=== PATIENT | male | born 1970 | race Hispanic/Latino ===

== ENCOUNTER 2018-10-20 10:54 | Inpatient (IN) | payer BC, OTHER ==
[2018-10-20 10:58] VITALS: BMI 24.5
--- NOTE | 2018-10-20 11:28 | ED PDOC ---
HPI: Back Time Seen by Provider: 10/20/18 11:03 Chief Complaint (Nursing): Back Pain History Per: Patient Onset/Duration Of Symptoms: Persistent Current Symptoms Are (Timing): Still Present Quality Of Discomfort: Aching Severity: Moderate Previous Symptoms: Back Pain Associated Symptoms: None Additional Complaint(s): Low back pain worse over past few days. H/o lumbar disk herniation. no weakness. No urinary sxs. Past Medical History Vital Signs: Last Vital Signs Temp 98.4 F 10/20/18 10:57 Pulse 81 10/20/18 10:57 Resp 17 10/20/18 10:57 BP 133/79 10/20/18 10:57 Pulse Ox 97 10/20/18 10:57 Primary Care Provider: Shai Villalobos - Medical History PMH: No Chronic Diseases - Family History Family History: States: Unknown Family Hx - Allergies Allergies/Adverse Reactions: Allergies Allergy/AdvReac Type Severity Reaction Status Date / Time No Known Allergies Allergy Verified 10/20/18 11:06 Review of Systems ROS Statement: Except As Marked, All Systems Reviewed And Found Negative Musculoskeletal: Positive for: Back Pain Physical Exam - Reviewed Nursing Documentation Reviewed: Yes Vital Signs Reviewed: Yes - Physical Exam Appears: Positive for: Non-toxic, No Acute Distress Head Exam: Positive for: ATRAUMATIC, NORMAL INSPECTION, NORMOCEPHALIC Skin: Positive for: Normal Color, Warm, DRY Eye Exam: Positive for: EOMI, Normal appearance, PERRL Cardiovascular/Chest: Positive for: Regular Rate, Rhythm Respiratory: Positive for: CNT, Normal Breath Sounds Gastrointestinal/Abdominal: Positive for: Normal Exam, Soft Extremity: Positive for: Normal ROM Neurological/Psych: Positive for: Awake, Alert, Normal Tone - ECG O2 Sat by Pulse Oximetry: 97 Disposition - Clinical Impression Clinical Impression: Back pain - Disposition Referrals: Shai Villalobos MD [Primary Care Provider] - Disposition Time: 11:28 Condition: FAIR - Pt Status Changed To: Hospital Disposition Of: Inpatient - Admit Certification Admit to Inpatient:: After my assessment, the patient will require hospitalization for at least two midnights. This is because of the severity of symptoms shown, intensity of services needed, and/or the medical risk in this patient being treated as an outpatient. - POA Present On Arrival: None
[2018-10-20 11:49] LABS: BASO # 0.1 K/uL (0.0-0.2); BASO % 0.9 % (0.0-2.0); EOS # 0.4 K/uL (0.0-0.7); EOS % 6.9 % (0.0-4.0); LYMPH # 2.2 K/uL (1.0-4.3); LYMPH % 35.2 % (20.0-40.0); MEAN CELL VOLUME 97.1 fl (80.0-94.0); MEAN CORPUSCULAR HEMOGLOBIN 32.6 pg (27.0-31.0); MEAN CORPUSCULAR HGB CONC 33.6 g/dL (33.0-37.0); MEAN PLATELET VOLUME 8.5 fl (7.2-11.7); MONO # 0.5 K/uL (0.0-0.8); MONO % 7.8 % (0.0-10.0); NEUT % 49.2 % (50.0-75.0); NRBC % 0.1 % (0.0-0.0); RBC 4.91 Mil/uL (4.40-5.90); RED CELL DISTRIBUTION WIDTH 14.3 % (11.5-14.5); WHITE BLOOD COUNT 6.2 K/uL (4.8-10.8)
[2018-10-20 11:53] LABS: PROTHROMBIN TIME 11.3 Seconds (9.8-13.1)
[2018-10-20 11:58] LABS: ALB/GLOB RATIO 1.4 (1.0-2.1); ALBUMIN 4.1 g/dL (3.5-5.0); ALT/SGPT 54 U/L (21-72); AST/SGOT 26 U/L (17-59); BLOOD UREA NITROGEN 16 mg/dl (9-20); CALCIUM 9.3 mg/dL (8.4-10.2); GFR NON-AFRICAN AMERICAN > 60
--- NOTE | 2018-10-20 14:03 | CT ---
Date of service: 10/20/2018 PROCEDURE: CT Lumbar Spine without contrast HISTORY: lumbar disc herniation COMPARISON: None available. TECHNIQUE: Axial computed tomography images were obtained of the lumbar spine without the use of intravenous contrast. Coronal and sagittal reformatted images were created and reviewed. Radiation dose: Total exam DLP = 321.68 mGy-cm. This CT exam was performed using one or more of the following dose reduction techniques: Automated exposure control, adjustment of the mA and/or kV according to patient size, and/or use of iterative reconstruction technique. FINDINGS: VERTEBRAE: There is grade 1 8 millimeter anterior spondylolisthesis of L5 relative to S1 associated with bilateral L5 spondylolysis and defect in the bilateral pars interarticularis. No evidence of destructive bony lesion or acute fracture otherwise in the lumbar spine. DISCS/SPINAL CANAL/NEURAL FORAMINA: L1-2: Unremarkable. L2-3: Unremarkable. L3-4: Unremarkable. L4-5: Unremarkable. L5-S1: There is broad-based disc protrusion associated with mild facet joint and posterior ligament hypertrophy which resulting in mild spinal and neural foraminal narrowing. PARASPINAL SOFT TISSUES: There is 2 millimeter nonobstructing calculus at the midpole of the left kidney. OTHER FINDINGS: None. IMPRESSION: Grade 1 anterior spondylolisthesis of L5 relative to S1 associated with bilateral L5 spondylolysis. Small to moderate size disc protrusion at L5-S1 associated with posterior ligament and facet joint hypertrophy which resulting in mild spinal and neural foraminal narrowing.
--- NOTE | 2018-10-20 14:15 | RAD ---
Date of service: 10/20/2018 HISTORY: Lumbar disc herniation COMPARISON: No prior. TECHNIQUE: Chest PA and lateral views FINDINGS: LUNGS: No active pulmonary disease. PLEURA: No significant pleural effusion identified. No pneumothorax apparent. CARDIOVASCULAR: No aortic atherosclerotic calcification present. Normal cardiac size. No pulmonary vascular congestion. OSSEOUS STRUCTURES: No significant abnormalities. VISUALIZED UPPER ABDOMEN: Normal. OTHER FINDINGS: None. IMPRESSION: No active disease.
--- NOTE | 2018-10-20 20:38 | CP.PCM.HP ---
History of Present Illness - History of Present Illness History of Present Illness: HPI: 48 y/o male with a PMH of lumbar disc herniation presented to the ED with acute on chronic back pain. As per the pt, he works in construction and has been experiencing worsening back pain over the past 12 months, with associated neuropathy/sciatic pain to the lower extremities. He has tried physical therapy, yoga, and trigger point injections, with no relief. Case discussed with Dr. Villalobos, pt for surgery tomorrow. PMH: Lumbar disc herniation. PSH: Cervical spine surgery. Allergies: NKDA. Review of Systems: Reviewed and no additional remarkable complaints except lower back pain and neuropathy. Objective Appears: Calm, Non-toxic, No Acute Distress. Head Exam: NORMAL INSPECTION, normocephalic. Eye Exam: Normal eye inspection, EOMI, PERRLA. Respiratory Exam: NORMAL BREATHING PATTERN, breath sounds clear to auscultation. Cardiovascular Exam: +S1, +S2. RRR. GI & Abdominal Exam: Soft, non-tender, non-distended. Musculoskeletal Exam: Painful ROM to the lower back, as well as vertebral tenderness on palpation. Neurological Exam: Alert, Awake, Oriented x3. Psychiatric exam: Normal mood. Calm and cooperative. Skin exam: Normal color, warm and dry. Assessment/Impression/Plan: 1.) Back pain/Lumbar disc herniation -Pt for lumbar disc surgery with Dr. Villalobos tomorrow, 10/21/18. -CT lumbar spine revealed "Grade 1 anterior spondylolisthesis of L5 relative to S1, as well as small to moderate size disc protrusion at L5-S1". -CXR, labs, and EKG reviewed- unremarkable, no acute findings. Medically cleared for surgery at this time. -NPO past midnight; will start Lactated Ringers. -Morphine and Dilaudid for pain. -SCDs for VTE. Present on Admission - Present on Admission Any Indicators Present on Admission: No Past Patient History - Past Medical History & Family History Past Medical History?: No - Past Social History Smoking Status: Heavy Smoker > 10 Cigarettes Daily - HEMATOLOGICAL/ONCOLOGICAL Hx AIDS: No Hx Human Immunodeficiency Virus (HIV): No - MUSCULOSKELETAL/RHEUMATOLOGICAL Hx Musculoskeletal Disorders: Yes Hx Falls: No - PSYCHIATRIC Hx Substance Use: No - SURGICAL HISTORY Hx Orthopedic Surgery: Yes Other/Comment: neck/ spinal fusion - ANESTHESIA Hx Anesthesia: Yes Hx Anesthesia Reactions: No Hx Malignant Hyperthermia: No Has any member of the family had a problem w/ anesthesia?: No Meds Allergies/Adverse Reactions: Allergies Allergy/AdvReac Type Severity Reaction Status Date / Time No Known Allergies Allergy Verified 10/20/18 11:06 Results - Vital Signs Recent Vital Signs: Last Vital Signs Temp 97.7 F 10/20/18 16:03 Pulse 66 10/20/18 16:03 Resp 20 10/20/18 16:03 BP 127/78 10/20/18 16:03 Pulse Ox 96 10/20/18 16:03 - Labs Result Diagrams: 10/20/18 11:45 10/20/18 11:45 Labs: Laboratory Results - last 24 hr 10/20/18 10/20/18 10/20/18 11:45 11:45 11:45 WBC 6.2 RBC 4.91 Hgb 16.0 Hct 47.7 MCV 97.1 H MCH 32.6 H MCHC 33.6 RDW 14.3 Plt Count 281 MPV 8.5 Neut % (Auto) 49.2 L Lymph % (Auto) 35.2 [place] % (Auto) 7.8 Eos % (Auto) 6.9 H Baso % (Auto) 0.9 Neut # (Auto) 3.0 Lymph # (Auto) 2.2 [place] # (Auto) 0.5 Eos # (Auto) 0.4 Baso # (Auto) 0.1 PT 11.3 INR 1.0 Sodium 140 Potassium 4.6 Chloride 103 Carbon Dioxide 27 Anion Gap 15 BUN 16 Creatinine 0.9 Est GFR ( Amer) > 60 Est GFR (Non-Af Amer) > 60 Random Glucose 100 Calcium 9.3 Total Bilirubin 0.5 AST 26 ALT 54 Alkaline Phosphatase 51 Total Protein 7.0 Albumin 4.1 Globulin 2.9 Albumin/Globulin Ratio 1.4 Assessment & Plan (1) Lumbar disc herniation Status: Acute (2) Back pain Status: Acute
--- NOTE | 2018-10-20 21:55 | CARD ---
APPROVED REPORT Date of service: 10/20/2018 EKG Measurement Heart [id number] <Conclusion> Normal sinus rhythm Possible Left atrial enlargement Borderline ECG
[2018-10-21] MEDS: Lactated Ringer's 1,000 ML IV SCH ×2 (00:04→20:17)
[2018-10-21] MEDS: HYDROmorphone 0.5 mg/0.5 ml ISec IVP PRN ×3 (00:11→14:05)
--- NOTE | 2018-10-21 07:29 | CP.PCM.CON ---
History of Present Illness - History of Present Illness History of Present Illness: Neurosurgical consult: Dr. Villalobos Patient is a 48 y/o male c/o severe lower back pain. The patient has had chronic lower back pain for many years which had progressively worsened over the past few weeks. The pain is daily and has hindered his usual activities such as walking, sitting and climbing. He has tried and failed conservative means with PT and oral medications. The pain is dull, intermittent and radiates to the LLE. He denies any numbness/tingling to LE, as well as bowel/bladder dysfunction or saddle paresthesias. He also denies CP/SOB/N/V/D/fever/dysuria/melena. PMH: denies PSH: cervical fusion, R femur ORIF, R femur removal of hardware meds: none allergy: NKDA SH: tobacco 2 ppd >40 years, former ETOH abuser, denies drug use Review of Systems - Review of Systems All systems: reviewed and no additional remarkable complaints except Review of Systems: as per HPI Past Patient History - Past Medical History & Family History Past Medical History?: No Past Family History: Reviewed and not pertinent - Past Social History Smoking Status: Heavy Smoker > 10 Cigarettes Daily - HEMATOLOGICAL/ONCOLOGICAL Hx AIDS: No Hx Human Immunodeficiency Virus (HIV): No - MUSCULOSKELETAL/RHEUMATOLOGICAL Hx Musculoskeletal Disorders: Yes Hx Falls: No - PSYCHIATRIC Hx Substance Use: No - SURGICAL HISTORY Hx Orthopedic Surgery: Yes Other/Comment: neck/ spinal fusion - ANESTHESIA Hx Anesthesia: Yes Hx Anesthesia Reactions: No Hx Malignant Hyperthermia: No Has any member of the family had a problem w/ anesthesia?: No Meds Allergies/Adverse Reactions: Allergies Allergy/AdvReac Type Severity Reaction Status Date / Time No Known Allergies Allergy Verified 10/20/18 11:06 - Medications Medications: Current Medications Hydromorphone HCl (Dilaudid) 0.5 mg IVP Q4H PRN PRN Reason: Pain, severe (8-10) Stop: 10/22/18 13:19 Last Admin: 10/21/18 00:11 Dose: 0.5 mg Lactated Ringer's (Lactated Ringer's) 1,000 mls @ 100 mls/hr IV .Q10H [facility] Last Admin: 10/21/18 00:04 Dose: 100 mls/hr Morphine Sulfate (Morphine) 2 mg IVP Q4 PRN PRN Reason: Pain, moderate (4-7) Last Admin: 10/21/18 05:39 Dose: 2 mg Physical Exam - Constitutional Appears: Well, No Acute Distress - Head Exam Head Exam: ATRAUMATIC, NORMOCEPHALIC - Eye Exam Eye Exam: EOMI, Normal appearance - ENT Exam ENT Exam: Mucous Membranes Moist - Respiratory Exam Respiratory Exam: NORMAL BREATHING PATTERN - Back Exam Additional comments: no lesions/masses/erythema diffuse lumbar midline and paraspinal tenderness sensation intact SP/DP/TN motor intact EHL/FHL/TA/G neg clonus - SLR b/l - Neurological Exam Neurological exam: Alert, CN II-XII Intact, Oriented x3 Results - Vital Signs Recent Vital Signs: Last Vital Signs Temp 98.4 F 10/20/18 23:38 Pulse 66 10/20/18 23:38 Resp 20 10/20/18 23:38 BP 108/71 10/20/18 23:38 Pulse Ox 96 10/20/18 23:38 - Labs Result Diagrams: 10/20/18 11:45 10/20/18 11:45 Labs: Laboratory Results - last 24 hr 10/20/18 10/20/18 10/20/18 11:45 11:45 11:45 WBC 6.2 RBC 4.91 Hgb 16.0 Hct 47.7 MCV 97.1 H MCH 32.6 H MCHC 33.6 RDW 14.3 Plt Count 281 MPV 8.5 Neut % (Auto) 49.2 L Lymph % (Auto) 35.2 [place] % (Auto) 7.8 Eos % (Auto) 6.9 H Baso % (Auto) 0.9 Neut # (Auto) 3.0 Lymph # (Auto) 2.2 [place] # (Auto) 0.5 Eos # (Auto) 0.4 Baso # (Auto) 0.1 PT 11.3 INR 1.0 Sodium 140 Potassium 4.6 Chloride 103 Carbon Dioxide 27 Anion Gap 15 BUN 16 Creatinine 0.9 Est GFR ( Amer) > 60 Est GFR (Non-Af Amer) > 60 Random Glucose 100 Calcium 9.3 Total Bilirubin 0.5 AST 26 ALT 54 Alkaline Phosphatase 51 Total Protein 7.0 Albumin 4.1 Globulin 2.9 Albumin/Globulin Ratio 1.4 - Impressions Impression: MRI from outside facility reveals lumbar spondylolisthesis at L5-S1 Assessment & Plan (1) Lumbar spondylosis Assessment and Plan: - Dr. Villalobos has seen, examined the patient and reviewed patient's imaging. The plan is to perform lumbar laminectomy and fusion at levels L-S1, possible other levels. -Risks/benefits/alternatives were explained to the patient who understands and agrees to proceed with procedure listed. -NPO -d/w Dr. Villalobos who agrees with above Status: Acute - Date & Time Date: 10/21/18 Time: 07:29
[2018-10-21] MEDS ORDERED: Bupivacaine HCl 0.25% PF (30 ml) Inj ONE (07:50)
[2018-10-21] MEDS ORDERED: Bupivacaine HCl 0.5% PF (30 ml) Inj ONE (07:50)
[2018-10-21] MEDS ORDERED: Lidocaine 1% w Epi 1:100,000 Inj ONE (07:50)
[2018-10-21] MEDS ORDERED: Lidocaine 1% Inj (20ml) ONE (07:51)
[2018-10-21] MEDS ORDERED: Thrombin Topical 5,000 Int Units Spray Kit ONE (07:56)
[2018-10-21] MEDS ORDERED: Absorbable Gelatin Sponge Size 12-7 ONE (07:56)
[2018-10-21] MEDS ORDERED: Propofol 10 mg/ml Inj (20 ML) ONE ×2 (09:39→11:56)
[2018-10-21] MEDS ORDERED: Succinylcholine Chloride 20 mg/ml Syr (5 ml) IV ONE (09:39)
[2018-10-21] MEDS ORDERED: Lidocaine 4% (Laryng-O-Jet) Kit MM ONE (09:39)
[2018-10-21] MEDS ORDERED: Rocuronium 10 mg/ml (5 ml) ONE ×2 (09:39→11:56)
[2018-10-21] MEDS ORDERED: Midazolam 2 MG/2 ML VIAL ONE ×2 (09:39→11:56)
[2018-10-21] MEDS ORDERED: Lactated Ringer's 1,000 ML IV ONE ×2 (11:55→14:35)
[2018-10-21] MEDS ORDERED: Lidocaine 2% MPF (5 ml) Inj ONE (11:56)
[2018-10-21] MEDS ORDERED: Absorbable Gelatin Sponge Size 12-7 TP ONE (13:04)
[2018-10-21] MEDS ORDERED: Thrombin Topical 5,000 Int Units Spray Kit TOP ONE (13:04)
[2018-10-21] MEDS ORDERED: Bupivacaine HCl 0.5% PF (30 ml) Inj IJ ONE (13:20)
[2018-10-21] MEDS ORDERED: Neostigmine 1:1000 (1 mg/ml) Inj ONE (13:21)
[2018-10-21] MEDS ORDERED: Oxycodone/Acetaminophen 5/325 mg Tab PO PRN (13:30)
[2018-10-21] MEDS ORDERED: Dexamethasone 4 mg/1 ml IVP PRN (13:39)
--- NOTE | 2018-10-21 13:40 | PCM.SURG1 ---
Surgeon's Initial Post Op Note - Surgeon's Notes Surgeon: Shai Villalobos MD Manager [employer]: Jose C Agudelo PA-C Type of Anesthesia: General Endo Anesthesia Administered By: Fabio Busch MD Pre-Operative Diagnosis: Lumbar spondylolisthesis Operative Findings: see complete operative report Post-Operative Diagnosis: Lumbar spondylolisthesis at L5-S1 Operation Performed: Lumbar laminectomy at L5-S1 Specimen/Specimens Removed: none Estimated Blood Loss: EBL {In ML}: 50 Blood Products Given: N/A Drains Used: No Drains Post-Op Condition: Good Date of Surgery/Procedure: 10/21/18 Time of Surgery/Procedure: 12:25
[2018-10-21] MEDS ORDERED: Lactated Ringer's 1,000 ML IV SCH (13:45)
[2018-10-21] MEDS: Oxycodone/Acetaminophen 5/325 mg Tab PO PRN ×2 (16:00→21:48)
--- NOTE | 2018-10-21 16:30 | RAD ---
Date of service: 10/21/2018 PROCEDURE: Fluoroscopic assistance in excess of 1 hour. HISTORY: LUMBAR LAMINECTOMY COMPARISON: None TECHNIQUE: Standard protocol for this study/examination. FINDINGS: Total fluoroscopic time (continuous mode) utilized during the procedure 0.9 seconds. Total exam DLP: 1.86 (mGy). IMPRESSION: Submitted images from the current procedure: 3.0
--- NOTE | 2018-10-21 17:44 | CP.PCM.PN ---
Subjective - Date & Time of Evaluation Date of Evaluation: 10/21/18 Time of Evaluation: 10:00 - Subjective Subjective: patient away in OR chart reviewed discussed with house staff plan as ordered follow up postoperatively Objective - Vital Signs/Intake and Output Vital Signs (last 24 hours): Temp Pulse Resp BP Pulse Ox 97.9 F 86 20 114/72 92 L 10/21/18 16:53 10/21/18 16:53 10/21/18 16:53 10/21/18 16:53 10/21/18 16:53 Intake and Output: 10/21/18 10/21/18 06:59 18:59 Intake Total 800 Balance 800 - Medications Medications: Current Medications Acetaminophen (Tylenol 325mg Tab) 650 mg PO Q4 PRN PRN Reason: Fever 101 degrees fahrenheit Cyclobenzaprine HCl (Flexeril) 10 mg PO Q8 PRN PRN Reason: Muscle spasm Docusate Sodium (Colace) 100 mg PO BID [facility] Last Admin: 10/21/18 16:02 Dose: 100 mg Hydromorphone HCl (Dilaudid) 0.5 mg IVP Q4H PRN PRN Reason: Pain, severe (8-10) Stop: 10/22/18 13:19 Last Admin: 10/21/18 00:11 Dose: 0.5 mg Lactated Ringer's (Lactated Ringer's) 1,000 mls @ 100 mls/hr IV .Q10H [facility] Last Admin: 10/21/18 00:04 Dose: 100 mls/hr Morphine Sulfate (Morphine) 2 mg IVP Q4 PRN PRN Reason: Pain, moderate (4-7) Last Admin: 10/21/18 05:39 Dose: 2 mg Ondansetron HCl (Zofran Inj) 4 mg IVP Q4 PRN PRN Reason: Nausea/Vomiting Oxycodone/Acetaminophen (Percocet 5/325 Mg Tab) 2 tab PO Q4 PRN PRN Reason: Pain, moderate (4-7) Stop: 10/24/18 13:31 Last Admin: 10/21/18 16:00 Dose: 2 tab Oxycodone/Acetaminophen (Percocet 5/325 Mg Tab) 1 tab PO Q4 PRN PRN Reason: Pain, Mild (1-3) Stop: 05/09/19 13:31 - Labs Labs: 10/20/18 11:45 10/20/18 11:45 PT 11.3 Seconds (9.8-13.1) 10/20/18 11:45 INR 1.0 10/20/18 11:45 Assessment and Plan (1) Lumbar spondylosis Status: Acute
[2018-10-22] MEDS: HYDROmorphone 0.5 mg/0.5 ml ISec IVP PRN
[2018-10-22] MEDS: Lactated Ringer's 1,000 ML IV SCH ×2 (00:05→06:28)
--- NOTE | 2018-10-22 03:47 | OP ---
PROCEDURE DATE: 10/21/2018 PREOPERATIVE DIAGNOSIS: Spondylolisthesis and spinal instability. POSTOPERATIVE DIAGNOSIS: Spondylolisthesis and spinal instability. PROCEDURE: Lumbar laminectomy at L5-S1 and L5-S1 posterolateral fusion. Fluoroscopy has been used. Microscopy has been used. SURGEON: Shai Villalobos MD INTERNATIONAL STUDENT COUNSELOR: Jose C Agudelo, physician junior assistant manager who helped me to perform the surgery and stayed throughout the case. DESCRIPTION OF PROCEDURE: The patient was brought to the operating room, anesthetized with general endotracheal anesthesia, placed in a prone position on the [place]bin table. Care was taken to protect all pressure points. Back of the lumbar area was thoroughly prepped and draped in a standard sterile manner after marking skin incision for lumbar laminectomy. After prepping and draping the area, skin has been incised. Bleeding skin has been controlled with bipolar communication assistant. After using the Bovie communication assistant, paraspinal muscles have been detached from the spinous process and lamina at L5-S1. After identified the levels with proper fluoroscopy and then magnification and by using high-speed drill, the lamina of L5-S1, medial part of L5-S1 had been drilled. The patient was found to be significantly osteoporotic bone After thinning of the bone by using a fine Kerrison punch, thinned out the lamina and medial part of the facets and then hypertrophied ligamentum flavum has been removed. Foraminotomy has been performed. Decompressing has been achieved. After that lateral aspect of the facet joints and transverse process have been decorticated and demineralized bone placed in the area achieving a posterolateral fusion. After that hemostasis was best achieved. Fascia was closed, interspinous ligaments and spinous process with 1 Vicryl, subcutaneous with 3-0 Vicryl, skin has been done with intradermal stitches. The patient tolerated the procedure. After the procedure, mobilized to the recovery room in stabilized condition. Shai Villalobos MD [facility]AMPUSAk[facility]
[2018-10-22] MEDS: Oxycodone/Acetaminophen 5/325 mg Tab PO PRN ×2 (05:28→10:39)
[2018-10-22 07:00] LABS: HEMOGLOBIN 14.5 g/dL (12.0-18.0); MEAN CELL VOLUME 96.9 fl (80.0-94.0); MEAN CORPUSCULAR HEMOGLOBIN 32.5 pg (27.0-31.0); MEAN CORPUSCULAR HGB CONC 33.5 g/dL (33.0-37.0); RBC 4.46 Mil/uL (4.40-5.90); WHITE BLOOD COUNT 14.6 K/uL (4.8-10.8)
[2018-10-22 07:12] LABS: BLOOD UREA NITROGEN 19 mg/dl (9-20); CALCIUM 8.9 mg/dL (8.4-10.2); GFR NON-AFRICAN AMERICAN > 60
[2018-10-22 07:59] VITALS: BP 118/62; RESP 20; TEMP 97.8
--- NOTE | 2018-10-22 08:39 | CP.PCM.PN ---
Subjective - Date & Time of Evaluation Date of Evaluation: 10/22/18 Time of Evaluation: 08:00 - Subjective Subjective: Patient seen and examined at bedside comfortable. Pain is significantly improved compared to preop. He also notes that he no longer has pain radiating to the LLE. He has been OOB without issues. He denies any other complaints/CP/SOB/fe mere/dizziness. Objective - Vital Signs/Intake and Output Vital Signs (last 24 hours): Temp Pulse Resp BP Pulse Ox 97.8 F 68 20 118/62 97 10/22/18 07:58 10/22/18 07:58 10/22/18 07:58 10/22/18 07:58 10/22/18 07:58 Intake and Output: 10/22/18 10/22/18 06:59 18:59 Intake Total 1920 Output Total 300 Balance 1620 - Medications Medications: Current Medications Acetaminophen (Tylenol 325mg Tab) 650 mg PO Q4 PRN PRN Reason: Fever 101 degrees fahrenheit Cyclobenzaprine HCl (Flexeril) 10 mg PO Q8 PRN PRN Reason: Muscle spasm Docusate Sodium (Colace) 100 mg PO BID [facility] Last Admin: 10/22/18 08:19 Dose: 100 mg Ondansetron HCl (Zofran Inj) 4 mg IVP Q4 PRN PRN Reason: Nausea/Vomiting Oxycodone/Acetaminophen (Percocet 5/325 Mg Tab) 2 tab PO Q4 PRN PRN Reason: Pain, moderate (4-7) Stop: 10/24/18 13:31 Last Admin: 10/22/18 05:28 Dose: 2 tab Oxycodone/Acetaminophen (Percocet 5/325 Mg Tab) 1 tab PO Q4 PRN PRN Reason: Pain, Mild (1-3) Stop: 10/24/18 13:31 Last Admin: 10/21/18 21:50 Dose: 1 tab - Labs Labs: 10/22/18 05:55 10/22/18 05:55 PT 11.3 Seconds (9.8-13.1) 10/20/18 11:45 INR 1.0 10/20/18 11:45 - Back Exam Additional comments: Abd binder in place Dressings CDI sensation intact SP/DP/TN motor intact EHL/FHL/TA/G neg clonus neg SLR b/l - Neurological Exam Neurological Exam: Alert, Awake, CN II-XII Intact, Oriented x3 Assessment and Plan (1) Lumbar spondylosis Assessment & Plan: POD #1 s/pp L5-S1 lumbar laminectomy -PT/OT -OOB -d/c IV medications -neurosurgically stable for d/c to home with percocet, flexeril and medrol dose felisha -f/u in office in 7-10 days -d/w Dr. Vlilalobos who agrees with above Status: Acute
[2018-10-22 11:40] VITALS: PULSE 73; O2SAT 95
== END 2018-10-22 11:59 | disposition home or self-care (01) | DRG 460 ==
LOC: SUPCPDRO 10:54 → H.ER 10:54 → H.ERHOLD 11:22 → H.MEDSURG1 13:00
PROVIDERS: ADMIT Family Medicine; ATTEND Family Medicine
PROC: 0SG30K1 Fusion of Lumbosacral Joint with Nonautologous Tissue Substitute, Posterior Approach, Posterior Column, Open Approach (ICD-10-PCS; principal; 2018-10-21 10:00)
DX: M43.17 Spondylolisthesis, lumbosacral region (principal); M51.26 Other intervertebral disc displacement, lumbar region; M53.2X7 Spinal instabilities, lumbosacral region; F17.210 Nicotine dependence, cigarettes, uncomplicated; G62.9 Polyneuropathy, unspecified